=== PATIENT | female | born 1995 | race Caucasian/White ===

== ENCOUNTER 2017-08-09 19:50 | Emergency (ER) | payer OTHER ==
[~2017-08-09] VITALS: Ht 160 cm; Wt 53.0 kg
[2017-08-09 19:58] VITALS: TEMP 36.4; Ht 160 cm; Wt 53.0 kg
[2017-08-09] MEDS ORDERED: MULT-513 PO (20:25)
--- NOTE | 2017-08-09 20:53 | EMERGENCY ROOM VISIT NOTE ---
History First contact with patient: 20:20 Chief Complaint: LEG PAIN,LEG INJURY Stated Complaint: L LEG SPRAIN History of Present Illness The patient is a 22 year old female who presents to the Emergency Room with complaints of left ankle pain. Patient states that this morning she had 2 hand stents in her apartment and fell backwards. She states that she fell right on the heel of her foot. Initially she was able to ambulate over the course the day she feels that her left ankle got progressively more swollen and she has had increasing pain and difficult to ambulate. At this time she states she is unable to walk due to the pain. She localizes the pain bilaterally to the posterior malleoli as well as her heel. She's not tried any medications to alleviate her pain. Otherwise she has not had any other issues. Her appetite and intake of been good. She's not had any difficulties voiding. She denies any other trauma sustained from a fall from [employer]. Review of Systems As noted below Constitutional: No fever, No chills, No weakness, No fatigue Eyes: No worsening of vision, No eye pain, No discharge, No diplopia ENT: No nasal symptoms, No sore throat, No tinnitus Respiratory: No cough, No sputum, No dyspnea on exertion, No dyspnea at rest Cardiovascular: No chest pain, No claudication, No palpitations Abdomen: No pain, No nausea, No vomiting, No diarrhea, No constipation Musculoskeletal: No joint pain, No muscle pain Genitourinary - Female: No dysuria, No urinary frequency, No urinary urgency Neurologic: No paralysis, No weakness, No numbness/tingling, No vertigo Psychiatric: No anxiety, No insomnia Hematologic / Lymphatic: No abnormal bleeding/bruising, No clotting problems , No swollen lymph nodes, No night sweats Integumentary: No rash, No new/changing skin lesions, No color change Allergic / Immunologic: No food allergies, No hives Past Medical/Surgical History no other medical history Surgeries - Lasik - Tooth filling Family History Father has CAD and type 2 diabetes Mother has hypertension Social History Smoking Status: Never Smoker Smokeless Tobacco Use: No Alcohol Use: none Drug Use: none Marital Status: single Housing Status: lives with friends Occupation Status: student (law student) Current/Historical Medications Scheduled Multivitamins/Minerals (Mvi With Minerals), 1 TAB PO DAILY Scheduled PRN Naproxen (Naprosyn), 250 MG PO BID PRN for Pain Allergies No known allergies Physical Exam Vital Signs Date Time Temp Pulse Resp B/P (MAP) Pulse Ox O2 Delivery O2 Flow Rate FiO2 08/09/17 21:48 79 108/73 100 Room Air 08/09/17 21:09 78 17 118/88 100 Room Air 08/09/17 19:58 36.4 75 16 121/82 100 Room Air Physical Exam Constitutional: Vital signs as above were reviewed. Eyes: Pupils equal, round, and reactive to light. Extraocular muscles are intact. No proptosis. No photophobia. Cardiovascular: Heart with a regular rate and rhythm. Pulses are palpable and symmetric in all 4 extremities. No pedal edema appreciated. Respiratory: Lungs clear to auscultation bilaterally. No wheezes, rales, or rhonchi appreciated. No accessory muscle use. No retractions. No increased work of breathing. GI: Abdomen soft, nontender, nondistended. Normal active bowel sounds. No abdominal hernias appreciated. No rebound. No guarding. : No CVA tenderness appreciated. Musculoskeletal: No midline cervical or vertebral tenderness. No gross deformities. No bony tenderness. No calf swelling or tenderness. Left Ankle: Mild swelling bilaterally malleoli compared to the left No obvious deformity or warmth noted Significant tenderness posteriorly to the medial and lateral malleoli on the left side Significant ankle pain all ranges of passive movement Patient has tenderness in all ranges of active movement of the ankle Normal distal pulses including dorsalis pedis and posterior tibialis Intact sensation to the L4, L5 and S1 distribution Integumentary: Warm, dry, no rashes appreciated. Neurological: Patient awake, alert, and oriented x 3. Cranial nerves two through 12 grossly intact. Motor 5 out of 5 strength bilateral upper and lower extremities. Lymph: No cervical lymphadenopathy appreciated. Medical Decision & Procedures ER Provider Diagnostic Interpretation: [~ rep ct add3]] L ANKLE MIN 3 VIEWS ROUTINE CLINICAL HISTORY: Left ankle pain status post trauma COMPARISON: None. DISCUSSION: No fractures or dislocations are visualized. IMPRESSION: No fractures or dislocations identified Electronically signed by: Rolly Lackey M.D. 08/09/2017 8:55 PM Dictated Date/Time: 08/09/2017 8:55 PM The status of this report is Signed. Draft = Not yet reviewed or approved by Radiologist. Signed = Reviewed and approved by Radiologist. [~ rep ct add3]] L FOOT MIN 3 VIEWS ROUTINE CLINICAL HISTORY: Left foot pain status post trauma COMPARISON: None. DISCUSSION: No acute fractures or dislocations are visualized. IMPRESSION: No fractures or dislocations identified. Electronically signed by: Rolly Lackey M.D. 08/09/2017 8:56 PM Dictated Date/Time: 08/09/2017 8:55 PM The status of this report is Signed. Draft = Not yet reviewed or approved by Radiologist. Signed = Reviewed and approved by Radiologist. Medications Administered Medications (Trade) Dose Ordered Sig/Júnior Route Start Time Stop Time Status Last Admin Dose Admin Acetaminophen (Tylenol Tab) 1,000 mg NOW STAT PO 08/09/17 21:27 08/09/17 21:28 DC 08/09/17 21:50 1,000 MG ED Course 20:20 - Patient seen and evaluated by Dr. Everardo Glass, [address] 20:30 - X-ray or ankle and foot ordered 21:00 - X-rays reviewed 21:10 - Discussed findings with patient 21:30 - VIKI/Crutches ordered 21:45 - Patient discharge completed Medical Decision 22-year-old female with a history of fall on her left ankle, with progressively increasing difficulty ambulating over the course the day. She had posterior malleolus pain bilaterally which fit criteria for the Holt ankle rules, so ankle radiographs were ordered. In addition she did have pain at the base of the heel. While the Holt for rules does not address calcaneal pain, landing directly on the feet would be mechanism for possible fracture. As such Radiographs of the left foot were also ordered. Review of radiographs was negative for fracture. As such the patient was managed as an ankle sprain. The patient was given VIKI wrap and advised to ambulate as tolerated. In the interim we would give her crutches to go home with. If over the course the next 7-10 days she continued to have difficulty with ambulation or at the pain in the ankle is not improving she is advised to see [facility] orthopedics for follow-up evaluation. The patient was given thousand milligrams by mouth Tylenol prior to departure for pain control. She was also given a prescription for Naprosyn. She was advised to take Naprosyn twice daily with meals to avoid gastritis or peptic ulcers. The patient was discharged in stable condition and will follow-up with [facility] with any additional concerns. Head Trauma GCS Score: 15 Medication Reconcilliation Current Medication List: was personally reviewed by me Blood Pressure Screening Patient's blood pressure: Normal blood pressure Impression Primary Impression: Left ankle sprain Departure Information Dispostion Home / Self-Care Condition GOOD Prescriptions Naproxen (Naprosyn) 250 Mg Tab 250 MG PO BID Y for Pain for 7 Days, #14 TAB take with food Prov: Everardo Glass MD 08/09/17 Patient Instructions My [facility] Additional Instructions You have a left ankle sprain. You did x-rays and they were all negative for fracture. You did have some difficulty walking, so we will wrap your ankle and give you crutches to go home with. You can walk on the left side as tolerated and use the crutches only as needed. Over 7-10 days you should note an improvement in the swelling and pain. If your pain does not improve or you have continued to have difficulty walking, please call [facility] for a follow-up appointment ([phone]). Before you leave we will give a dose of Tylenol for pain. Also take Tylenol at home. We will give you a prescription for naproxen, to help with the pain and inflammation. Please take this as instructed and with food. It was a pleasure to be involved in you care and we wish you all the best.
--- NOTE | 2017-08-09 20:56 | DIAGNOSTIC IMAGING REPORT ---
L ANKLE MIN 3 VIEWS ROUTINE CLINICAL HISTORY: Left ankle pain status post trauma COMPARISON: None. DISCUSSION: No fractures or dislocations are visualized. IMPRESSION: No fractures or dislocations identified Electronically signed by: Rolly Lackey M.D. 08/09/2017 8:55 PM Dictated Date/Time: 08/09/2017 8:55 PM
--- NOTE | 2017-08-09 20:57 | DIAGNOSTIC IMAGING REPORT ---
L FOOT MIN 3 VIEWS ROUTINE CLINICAL HISTORY: Left foot pain status post trauma COMPARISON: None. DISCUSSION: No acute fractures or dislocations are visualized. IMPRESSION: No fractures or dislocations identified. Electronically signed by: Rolly Lackey M.D. 08/09/2017 8:56 PM Dictated Date/Time: 08/09/2017 8:55 PM
--- NOTE | 2017-08-09 21:17 | EMERGENCY ROOM VISIT NOTE ---
ED Visit Note First contact with patient: 20:20 Resident Physician Supervision Note: I was present with Dr. Glass during the history and exam. I discussed the case with the resident and agree with the findings and plan as documented in the note. Documented By: Hayden Giles
[2017-08-09] MEDS ORDERED: ACETAMINOPHEN 500 MG TAB PO STA (21:27)
[2017-08-09] MEDS ORDERED: NAPR250T2 PO (21:34)
[2017-08-09 21:48] VITALS: BP 108/73; PULSE 79; O2SAT 100
== END 2017-08-09 21:53 | disposition home or self-care (01) ==
LOC: C.EDB 19:51 → C.EDD 21:53
DX: S93.402A Sprain of unspecified ligament of left ankle, initial encounter (principal); X58.XXXA Exposure to other specified factors, initial encounter; Z83.3 Family history of diabetes mellitus; Z82.49 Family history of ischemic heart disease and other diseases of the circulatory system